=== PATIENT | male | born 1960 | race Caucasian/White ===

== ENCOUNTER 2020-12-09 07:23 | Day surgery (SDC) | payer BC, OTHER ==
[2020-12-09] MEDS ORDERED: Sodium Chloride 0.9% 1,000 ML IV SCH (07:30)
[2020-12-09] MEDS ORDERED: Propofol 200 MG/20 ML SDV ONE (08:04)
[2020-12-09] MEDS ORDERED: Midazolam 1 MG/ML 2 ML SDV ONE (08:04)
[2020-12-09] MEDS ORDERED: fentaNYL 100 MCG/2 ML SDV ONE (08:04)
--- NOTE | 2020-12-09 13:11 | OR ---
DATE OF PROCEDURE: 12/09/2020 SURGEON: Chance Kaur MD PROCEDURE: Colonoscopy. FINDINGS: 1. Transverse colon polyp, approximately 5 mm, completely removed using hot snare wire device. 2. Rectal polyp, approximately 5 mm, completely removed using hot snare wire device. COMPLICATIONS: None. JOB PRESS FEEDER: None. ANESTHESIA: MAC. PREOPERATIVE DIAGNOSIS: Screening colonoscopy. POSTOPERATIVE DIAGNOSIS: Screening colonoscopy. RISKS: Risks, benefits, alternatives, and limitations including, but not limited to infection bleeding, false positives, false negatives, and other risks not listed here were explained to the patient who wished to proceed. PROCEDURE IN DETAIL: The patient was placed in left lateral decubitus position. Digital rectal exam was performed without abnormality. Scope was introduced and advanced atraumatically to the ileocecal valve. A photo was taken of this. Scope was brought back to the ascending, transverse, descending colon, and retroflexed. The aforementioned polyps were identified and completely removed. No evidence of old or new blood. No masses. No colitis. No other abnormalities on retroflexion. Greater than 8 minutes was spent removing the scope. The prep was acceptable, approximately 90% of the luminal surface could be seen. The patient tolerated the procedure well. Chance Kaur MD /[id number]
== END 2020-12-09 10:36 | disposition home or self-care (01) ==
LOC: JP.SDS 07:23
PROVIDERS: ATTEND Surgery
DX: Z12.11 Encounter for screening for malignant neoplasm of colon (principal); D12.3 Benign neoplasm of transverse colon; D12.8 Benign neoplasm of rectum
CPT/HCPCS: 45385; J2250; J2704; J3010; J7030